=== PATIENT | male | born 1985 | race American Indian/Alaskan Native ===

== ENCOUNTER 2018-07-04 02:57 | Emergency (ER) | payer OTHER ==
[2018-07-04 04:01] LABS: Basophils % (Auto) 0.4 % (0.0-1.8); Eosinophils % (Auto) 0.1 % (0.0-4.3); Hematocrit 42.5 % (35.5-45.6); Hemoglobin 14.1 gm/dl (11.8-15.2); Lymphocytes # (Auto) 2.4 K/mm3 (1.2-5.4); Lymphocytes % (Auto) 44.6 % (13.4-35.0); Mean Corpuscular HGB Conc 33 % (32-34); Mean Corpuscular Volume 80 fl (84-94); Monocytes # (Auto) 0.6 K/mm3 (0.0-0.8); Monocytes % (Auto) 11.1 % (0.0-7.3); Platelet Count 309 K/mm3 (140-440); Red Blood Count 5.28 M/mm3 (3.65-5.03); Red Cell Distribution Width 14.5 % (13.2-15.2)
[2018-07-04 04:21] LABS: BUN/Creatinine Ratio 9; Blood Urea Nitrogen 11 mg/dL (9-20); Calcium 9.5 mg/dL (8.4-10.2); Hemolysis Index 12
--- NOTE | 2018-07-04 04:57 | Emergency Department Report ---
ED Psych HPI - General Chief Complaint: Psych Stated Complaint: MH EVAL Time Seen by Provider: 07/04/18 03:13 Source: patient Mode of arrival: Ambulatory - History of Present Illness Initial Comments: Patient is a 32-year-old [place] male who is presenting with suicidal ideation s. Patient states that the front of his called 911 after seeing him on Facebook live holding a gun and stating that this was the N. Patient states he has been very depressed since lost his partner who recently. Patient's been having some suicidal thoughts however he has never acted on them or expressed them to anyone. Patient states that he didn't directly say he was given a kilos of landa juliano was implied on his Facebook live. Patient does admit to myself and our mental health warehouse unloader that he was having suicidal thoughts. Patient was initially reluctant to come to the hospital and initially was barricaded himself in his home when paramedics and police arrived. Patient's was escorted here by police and crisis social workers that were called to the scene. - Related Data Previous Rx's Medication Instructions Recorded Last Taken Type Dicyclomine [Bentyl] 10 mg PO QID PRN #20 capsule 08/16/15 Unknown Rx Famotidine [Pepcid] 20 mg PO QDAY #30 tablet 08/16/15 Unknown Rx Ondansetron [Zofran Odt] 4 mg PO QID PRN #20 tab.rapdis 08/16/15 Unknown Rx Allergies Allergy/AdvReac Type Severity Reaction Status Date / Time No Known Allergies Allergy Verified 08/16/15 00:24 ED Review of Systems ROS: Stated complaint: MH EVAL Other details as noted in HPI Comment: All other systems reviewed and negative ED Past Medical Hx - Past Medical History Previous Medical History?: Yes Hx HIV: Yes (Recently diagnosed) - Surgical History Past Surgical History?: No - Social History Smoking Status: Current Some Day Smoker Substance Use Type: Marijuana, Other - Medications Home Medications: Home Medications Medication Instructions Recorded Confirmed Last Taken Type Dicyclomine [Bentyl] 10 mg PO QID PRN #20 capsule 08/16/15 Unknown Rx Famotidine [Pepcid] 20 mg PO QDAY #30 tablet 08/16/15 Unknown Rx Ondansetron [Zofran Odt] 4 mg PO QID PRN #20 tab.rapdis 08/16/15 Unknown Rx ED Physical Exam - General Limitations: No Limitations General appearance: alert, in no apparent distress - Head Head exam: Present: atraumatic, normocephalic - Eye Eye exam: Present: normal appearance - ENT ENT exam: Present: mucous membranes moist - Neck Neck exam: Present: normal inspection - Respiratory Respiratory exam: Present: normal lung sounds bilaterally. Absent: respiratory distress, wheezes, rales, rhonchi - Cardiovascular Cardiovascular Exam: Present: regular rate, normal rhythm. Absent: systolic murmur, diastolic murmur, rubs, gallop - GI/Abdominal GI/Abdominal exam: Present: soft, normal bowel sounds. Absent: distended, tenderness, guarding, rebound, rigid - Rectal Rectal exam: Present: deferred - Extremities Exam Extremities exam: Present: normal inspection - Back Exam Back exam: Present: normal inspection - Neurological Exam Neurological exam: Present: alert, oriented X3 - Psychiatric Psychiatric exam: Present: normal affect, normal mood - Skin Skin exam: Present: warm, dry, intact, normal color. Absent: rash ED Course Vital Signs 07/04/18 03:09 Temperature 99.1 F Pulse Rate 98 H Respiratory 18 Rate Blood Pressure 130/85 O2 Sat by Pulse 99 Oximetry ED Medical Decision Making - Lab Data Result diagrams: 07/04/18 03:38 07/04/18 03:38 Lab Results 07/04/18 07/04/18 07/04/18 Range/Units 03:38 03:38 03:38 WBC (4.5-11.0) K/mm3 RBC (3.65-5.03) M/mm3 Hgb (11.8-15.2) gm/dl Hct (35.5-45.6) % MCV (84-94) fl MCH (28-32) pg MCHC (32-34) % RDW (13.2-15.2) % Plt Count (140-440) K/mm3 Lymph % (Auto) (13.4-35.0) % [place] % (Auto) (0.0-7.3) % Eos % (Auto) (0.0-4.3) % Baso % (Auto) (0.0-1.8) % Lymph # (1.2-5.4) K/mm3 [place] # (0.0-0.8) K/mm3 Eos # (0.0-0.4) K/mm3 Baso # (0.0-0.1) K/mm3 Seg Neutrophils % (40.0-70.0) % Seg Neutrophils # (1.8-7.7) K/mm3 Sodium 140 (137-145) mmol/L Potassium 3.9 (3.6-5.0) mmol/L Chloride 103.3 (98-107) mmol/L Carbon Dioxide 23 (22-30) mmol/L Anion Gap 18 mmol/L BUN 11 (9-20) mg/dL Creatinine 1.2 (0.8-1.5) mg/dL Estimated GFR > 60 ml/min BUN/Creatinine Ratio 9 % Glucose 102 H (75-100) mg/dL Calcium 9.5 (8.4-10.2) mg/dL Salicylates < 0.3 L (2.8-20.0) mg/dL Acetaminophen < 5.0 L (10.0-30.0) ug/mL Plasma/Serum Alcohol (0-0.07) % 07/04/18 07/04/18 Range/Units 03:38 03:38 WBC 5.4 (4.5-11.0) K/mm3 RBC 5.28 H (3.65-5.03) M/mm3 Hgb 14.1 (11.8-15.2) gm/dl Hct 42.5 (35.5-45.6) % MCV 80 L (84-94) fl MCH 27 L (28-32) pg MCHC 33 (32-34) % RDW 14.5 (13.2-15.2) % Plt Count 309 (140-440) K/mm3 Lymph % (Auto) 44.6 H (13.4-35.0) % [place] % (Auto) 11.1 H (0.0-7.3) % Eos % (Auto) 0.1 (0.0-4.3) % Baso % (Auto) 0.4 (0.0-1.8) % Lymph # 2.4 (1.2-5.4) K/mm3 [place] # 0.6 (0.0-0.8) K/mm3 Eos # 0.0 (0.0-0.4) K/mm3 Baso # 0.0 (0.0-0.1) K/mm3 Seg Neutrophils % 43.8 (40.0-70.0) % Seg Neutrophils # 2.4 (1.8-7.7) K/mm3 Sodium (137-145) mmol/L Potassium (3.6-5.0) mmol/L Chloride (98-107) mmol/L Carbon Dioxide (22-30) mmol/L Anion Gap mmol/L BUN (9-20) mg/dL Creatinine (0.8-1.5) mg/dL Estimated GFR ml/min BUN/Creatinine Ratio % Glucose (75-100) mg/dL Calcium (8.4-10.2) mg/dL Salicylates (2.8-20.0) mg/dL Acetaminophen (10.0-30.0) ug/mL Plasma/Serum Alcohol < 0.01 (0-0.07) % - Medical Decision Making She is medically cleared at this time. It was suggested by mental health warehouse unloader that the patient be placed on 1013. Patient be evaluated for transfer to a [facility] facility Critical care attestation.: If time is entered above; I have spent that time in minutes in the direct care of this critically ill patient, excluding procedure time. ED Disposition Clinical Impression: Suicidal ideation, Encounter for psychiatric assessment Disposition: DC/TX-65 PSY HOSP/PSY UNIT Is pt being admited?: No Does the pt Need Aspirin: No Condition: Stable Time of Disposition: 04:57
[2018-07-04 12:14] LABS: Bacteria,Urine 1+ /HPF (Negative); Bilirubin,Urine NEG (Negative); Blood,Urine NEG (Negative); Color,Urine Amber (Yellow); Hyaline Casts,Urine 7 /LPF; Mucus,Urine 3+ /HPF
[2018-07-04 12:41] LABS: Benzodiazepines Screen,Urine PRESUMPTIVE NEGATIVE; Cannabinoid Screen,Urine PRESUMPTIVE NEGATIVE; Cocaine Screen,Urine PRESUMPTIVE NEGATIVE; Methadone Screen,Urine PRESUMPTIVE NEGATIVE; Opiate Screen,Urine PRESUMPTIVE NEGATIVE
--- NOTE | 2018-07-04 12:42 | Consultation ---
History of Present Illness - Reason for Consult Consult date: 07/04/18 Reason for consult: Initial Psychiatric Evaluation - History of Present Psychiatric Illness Patient is a 32-year-old male who presents to the emergency room with suicidal ideations. Patient states that he called 911 because he wants to see his sister/family. Per record patient was on Facebook Live holding a gun to his head stating he wants to end it all. Patient denies having gun held to head. Today the patient is cooperative but anxious during the assessment. He appears guarded and withdrawn. He verbalizes that his depression has worsen after the of his partner last month. He endorses depressed mood, lack of motivation, decrease energy, decrease appetite, and decrease sleep. Later, patient reports that his partner of pneumonia. Also, patient was diagnosed with HIV 2 weeks ago. He denies HI's, A/VH's, and delusions. Current Psychiatric Medications: Patient denies. Past Psychiatric History: No previous psychiatric diagnosis; no previous inpatient psychiatric hospitalizations; no outpatient psychiatrist; no previous suicide attempts. Past Psychiatric Medication Trials: Patient denies. History of Drug/Alcohol Abuse: Patient denies. UDS positive for amphetamines. History of Abuse/Trauma: Patient denies sexual, physical, and mental abuse. Social History: Master's Degree in Criminal Justice; no children; no pending legal issues; $3500 per month; limited support system. Family History of psychiatric illness and substance abuse: Brother- "schizophrenia and bipolar" Medications and Allergies Allergies Allergy/AdvReac Type Severity Reaction Status Date / Time No Known Allergies Allergy Verified 08/16/15 00:24 Home Medications Medication Instructions Recorded Confirmed Last Taken Type Dicyclomine [Bentyl] 10 mg PO QID PRN #20 capsule 08/16/15 Unknown Rx Famotidine [Pepcid] 20 mg PO QDAY #30 tablet 08/16/15 Unknown Rx Ondansetron [Zofran Odt] 4 mg PO QID PRN #20 tab.rapdis 08/16/15 Unknown Rx Mental Status Exam - Vital signs Last Vital Signs Temp 97.6 F 07/04/18 08:11 Pulse 99 H 07/04/18 08:11 Resp 18 07/04/18 12:05 BP 162/101 07/04/18 08:11 Pulse Ox 95 07/04/18 08:11 - Exam Narrative exam: Mental Status Exam Appearance: in hospital scrubs Behavior: poor eye contact Speech: regular rate and tone Mood: "sad " Affect: congruent to mood Thought Process: circumstantial Thought Content: Denies HI's, A/VH's, and delusions; + SI's with plan to shoot self Motor Activity: sitting in chair Cognition: A/O x 3 Insight: fair Judgment: poor Results Result Diagrams: 07/04/18 03:38 07/04/18 03:38 Abnormal lab results 07/04/18 07/04/18 07/04/18 Range/Units 03:38 03:38 03:38 RBC (3.65-5.03) M/mm3 MCV (84-94) fl MCH (28-32) pg Lymph % (Auto) (13.4-35.0) % [place] % (Auto) (0.0-7.3) % Glucose 102 H (75-100) mg/dL Ur Specific [place] (1.003-1.030) Salicylates < 0.3 L (2.8-20.0) mg/dL Acetaminophen < 5.0 L (10.0-30.0) ug/mL 07/04/18 07/04/18 Range/Units 03:38 11:59 RBC 5.28 H (3.65-5.03) M/mm3 MCV 80 L (84-94) fl MCH 27 L (28-32) pg Lymph % (Auto) 44.6 H (13.4-35.0) % [place] % (Auto) 11.1 H (0.0-7.3) % Glucose (75-100) mg/dL Ur Specific [place] 1.040 H (1.003-1.030) Salicylates (2.8-20.0) mg/dL Acetaminophen (10.0-30.0) ug/mL All other labs normal. Assessment and Plan Assessment and plan: Impression: NO PPHx. MDD, recurrent, severe w/o psychosis. Today the patient is a calm and cooperative during the assessment. He denies HI's, A/VH's, and delusions. UDS positive for amphetamines. Recommendation/Plan: 1. Continue 1013. Will reassess in 24 hours. 2. Start Zoloft 50mg po QAM depression/anxiety. Discussed possible increase suicidality/ medication induced siddhartha in reference to Zoloft. Patient verbalizes understanding. 3. Will attempt to gain collateral to determine proper disposition. Disposition: Will refer patient to inpatient psychiatric services. Will staff with Dr. Yvonne Conn.
[2018-07-04 13:17] LABS: Amphetamine Screen,Urine PRESUMPTIVE POSITIVE
[2018-07-05] MEDS: ZOLOFT PO SCH (11:15)
--- NOTE | 2018-07-05 18:14 | Progress Note ---
Subjective - Reason for Consult Consult date: 07/05/18 Reason for consult: follow up - Chief Complaint Chief complaint: He is angry and does not want to show the video or give his insurance information. Mental Status Exam - Vital signs Last Vital Signs Temp 97.5 F L 07/05/18 15:14 Pulse 94 H 07/05/18 15:14 Resp 16 07/05/18 15:14 BP 103/78 07/05/18 15:14 Pulse Ox 99 07/05/18 15:14 - Exam Orientation: time, place, person Affect: agitated Mood: congruent with affect Thought content: other (denies suicidal or homicidal ideation) Thought Process: Intact Perceptions: none Speech: normal rate and pattern Concentration: focused Motor activity: normal Level of consciousness: alert Memory: Intact Sleep Symptoms: Difficulty Falling Asleep Appetite: decreased Interaction: uncooperative Assessment and Plan Patient is a 32-year-old male who presents to the emergency room with suicidal ideations. Patient states that he called 911 because he wants to see his sister/family. Per record patient was on Facebook Live holding a gun to his head stating he wants to end it all. Patient denies having gun held to head. He says he had a phone and not a gun. He states the gun was in the holster. 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 Today the patient is evasive and angry when finding out the 1013 and transfer process. He appears to minimize the of his partner and says he is dealing with it. He endorses depressed mood, lack of motivation, decrease energy, decrease appetite, and decrease sleep. Later, patient reports that his partner of pneumonia. Also, patient was diagnosed with HIV 2 weeks ago. He denies HI's, A/VH's, and delusions. Impression: NO PPHx. MDD, recurrent, severe w/o psychosis. Today the patient is a calm and cooperative during the assessment. He denies HI's, A/VH's, and delusions. UDS positive for amphetamines. Recommendation/Plan: 1. Continue 1013. Will reassess in 24 hours. 2. Contineu Zoloft 50mg po QAM depression/anxiety. Discussed possible increase suicidality/ medication induced siddhartha in reference to Zoloft. Patient verbalizes understanding. 3. Will attempt to gain collateral to determine proper disposition. Disposition: Will refer patient to inpatient psychiatric services. Will staff with Dr. Yvonne Conn.
[2018-07-06] MEDS: ZOLOFT PO SCH (10:26)
[2018-07-07] MEDS: ZOLOFT PO SCH (10:53)
--- NOTE | 2018-07-07 12:28 | Progress Note ---
Subjective - Reason for Consult Consult date: 07/07/18 Reason for consult: Psychiatry Follow-up - Chief Complaint Chief complaint: "I didn't do anything" 32-year-old male who presents to the emergency room with suicidal ideations. Today the patient is somewhat evasive during the assessment. He was asked about the [employer] video, he denies holding a gun to his head. He is concerned about going to work. He stated that he didn't do anything wrong. He was asked about discussing the entire incident (specifics about the video) prior to his arrival to the ER, he stated, "I am good." He denies SI/HI's and AVH's. He denies any side effects of his medications. The patient is refusing Zoloft. Mental Status Exam - Vital signs Last Vital Signs Temp 97.8 F 07/07/18 08:36 Pulse 83 07/07/18 08:36 Resp 14 07/07/18 08:36 BP 104/78 07/07/18 08:36 Pulse Ox 98 07/07/18 08:36 - Exam Narrative exam: MSE: Appearance: calm Behavior: regular eye contact Speech: regular rate and tone Mood: evasive Affect: flat Thought Process: circumstantial Thought Content: denies SI/HI's and AVH's Motor Activity: sitting up in bed Cognition: A/O x 3 Insight: variable Judgment: variable Assessment and Plan Impression: MDD. Substance Use DO (amphetamines). Today the patient is a calm, but guarded during the assessment. DDx: R/O Bipolar DO, Substance Induced Mood DO Recommendation/Plan: Continue 1013 and gather collateral information. Continue Zoloft 50 mg PO daily for depression. Discussed possible suicidality/medication induced siddhartha with the patient reference Zoloft. Dispo: The patient was referred to inpatient psy services. Will staff with Dr. Yvonne Conn.
[2018-07-08] MEDS: ZOLOFT PO SCH (10:13)
--- NOTE | 2018-07-08 11:13 | Progress Note ---
Subjective - Reason for Consult Consult date: 07/08/18 Reason for consult: Psychiatry Follow-up - Chief Complaint Chief complaint: "I will stay of the meth" 32-year-old male who presents to the emergency room with suicidal ideations. Today the patient is calm and cooperative during the assessment. Per collateral information from the patient's sister Lex Smith at [phone], she stated that her brother never put a gun to his head on facebook live. She stated, "I watched the entire video." She stated that the patient was "high on meth" and was possibly "paranoid" prior to coming to the ER. She denies any previous crisis in the past by her brother. The patient acknowledged being somewhat depressed because of stressors, but is adamant that he didn't want to kill himself by using a gun. He stated that he is willing to take Zoloft, but would also like to be referred to see a therapist. He denies SI/HI's and AVH's. Mental Status Exam - Vital signs Last Vital Signs Temp 97.5 F L 07/08/18 04:00 Pulse 84 07/08/18 04:00 Resp 16 07/08/18 04:00 BP 119/65 07/08/18 04:00 Pulse Ox 100 07/08/18 04:00 - Exam Narrative exam: MSE: Appearance: calm, cooperative Behavior: regular eye contact Speech: regular rate and tone Mood: "good" Affect: congruent to mood Thought Process: linear Thought Content: denies SI/HI's and AVH's Motor Activity: sitting up in bed Cognition: A/O x 3 Insight: appropriate Judgment: appropriate Assessment and Plan Impression: MDD. Substance Use DO (amphetamines). Today the patient is a calm and cooperative during the assessment. The patient is no threat to self. DDx: R/O Bipolar DO, Substance Induced Mood DO Recommendation/Plan: Rescind 1013. Continue Zoloft 50 mg PO daily for depression. Discussed possible suicidality/medication induced siddhartha with the patient reference Zoloft. Discussed the importance to abstain from using recreational drugs with the patient. Dispo: The patient can follow up with [facility] for outpatient psy services. Will staff with Dr. Yvonne Conn.
--- NOTE | 2018-07-08 13:15 | Emergency Department Report ---
Blank Doc - Documentation Documentation: I was asked by the psychiatric team to provide discharge instructions for this patient. He was seen multiple times over the past few days. Originally he came in with some questionable suicidal ideations secondary to depression. The psychiatric team which includes the nurse practitioner Dean, working under the supervision of the psychiatrist Dr. Conn, have seen this patient and cleared him to be discharged home with outpatient follow-up and worsened the 1013. Their evaluation has brought them to the conclusion that the patient is not a danger to himself, danger to others, or having psychosis and he no longer meets the criteria for a 1013. They have also recommended for the patient to be continued on Zoloft and have talked to him regarding the metabolic and psychiatric side effects of this medication. Prior to discharge, I spoke with the patient myself as well as and the patient reiterates that he has no suicidal ideations and is interested in outpatient follow-up and says that he will be compliant. He has been instructed to return to the emergency department with any thoughts of harming himself, harming others, worsening of his symptoms, or if any acute distress.
[2018-07-08 14:16] VITALS: BP 119/76
== END 2018-07-08 14:15 | disposition home or self-care (01) ==
LOC: EEVIPCON 02:57 → ED 02:57
DX: F32.2 Major depressive disorder, single episode, severe without psychotic features (principal); F12.10 Cannabis abuse, uncomplicated; F17.200 Nicotine dependence, unspecified, uncomplicated; F15.10 Other stimulant abuse, uncomplicated
CPT/HCPCS: 36415; 80048; 80307; 81001; 85025; 99284; G0480; 80320

== ENCOUNTER 2018-07-24 22:16 | Emergency (ER) | payer OTHER ==
--- NOTE | 2018-07-24 23:58 | Emergency Department Report ---
ED Psych HPI - General Chief Complaint: Psych Stated Complaint: PSYCH EVALUATION Time Seen by Provider: 07/24/18 23:18 Source: patient, family, old records reviewed Mode of arrival: Ambulatory Limitations: Other (recent drug use) - History of Present Illness Initial Comments: Venkat is a very pleasant 32 yo male with hx of anxiety, depression and polysubs tance abuse who presents with abnormal behavior today. Her close friend giovanni was concerned that he would not answer his phone. He did admit to using methamphetamine today. He has used methamphetamine for the past 3-4 years. Heavy use of drugs since the of his intimate partner 2 months ago. His partner of AIDS complication. Venkat, himself, has recently discovered that he is HIV positive. Due to odd behavior, his sister would no longer allow him to stay in her home. He admits to depression and anxiety. Denies hallucinations. However, he does admit tthat he hears the voices of his mother and partner while under the influence of methamphetamines. Recently evaluated and held on 1013 involuntary held in our department for 4 days for suicidal ideation. At that time, he had access to a gun. Prescribed sertraline. Not taking this medication MD Complaint: altered mental status, other (abnormal behavior) -: Gradual, month(s) (2 months) Associated Psychiatric Symptoms: depression, racing thoughts Quality: constant Worsens With: drug use Context: recent drug abuse, not taking psychiatric - Related Data Previous Rx's Medication Instructions Recorded Last Taken Type Sertraline [Zoloft] 50 mg PO QAM #20 tablet 07/08/18 Unknown Rx Allergies Allergy/AdvReac Type Severity Reaction Status Date / Time No Known Allergies Allergy Verified 08/16/15 00:24 ED Review of Systems ROS: Stated complaint: PSYCH EVALUATION Other details as noted in HPI Comment: All other systems reviewed and negative Constitutional: denies: fever, malaise Respiratory: denies: cough Cardiovascular: denies: chest pain ED Past Medical Hx - Past Medical History Previous Medical History?: Yes Hx HIV: Yes (Recently diagnosed) - Surgical History Past Surgical History?: No - Social History Smoking Status: Never Smoker Substance Use Type: None - Medications Home Medications: Home Medications Medication Instructions Recorded Confirmed Last Taken Type Sertraline [Zoloft] 50 mg PO QAM #20 tablet 04/23/19 05/09/19 Unknown Rx ED Physical Exam - General Limitations: No Limitations General appearance: alert, in no apparent distress, appears intoxicated - Head Head exam: Present: atraumatic, normocephalic - Eye Eye exam: Present: normal appearance - ENT ENT exam: Present: mucous membranes moist - Neck Neck exam: Present: normal inspection, full ROM - Respiratory Respiratory exam: Present: normal lung sounds bilaterally. Absent: respiratory distress, wheezes, rales, rhonchi - Cardiovascular Cardiovascular Exam: Present: regular rate, normal rhythm, normal heart sounds. Absent: systolic murmur, diastolic murmur, rubs, gallop - GI/Abdominal GI/Abdominal exam: Present: soft, normal bowel sounds. Absent: distended, tenderness, guarding, rebound - Rectal Rectal exam: Present: deferred - Extremities Exam Extremities exam: Present: normal inspection - Back Exam Back exam: Present: normal inspection - Neurological Exam Neurological exam: Present: alert, oriented X3 - Psychiatric Psychiatric exam: Present: other (labile affect, inappropriately smiling, holding a large picture of his mother, poor insight, reports depression) - Skin Skin exam: Present: warm, dry, intact, normal color. Absent: rash ED Medical Decision Making - Lab Data Result diagrams: 07/24/18 23:52 Laboratory Results - last 24 hr 07/24/18 07/24/18 07/24/18 23:37 23:37 23:52 Sodium 137 Potassium 4.5 Chloride 97.6 L Carbon Dioxide 25 Anion Gap 19 BUN 14 Creatinine 1.3 Estimated GFR > 60 BUN/Creatinine Ratio 11 Glucose 95 Calcium 9.9 Urine Color Yellow Urine Turbidity Slightly-cloudy Urine pH 5.0 Ur Specific [place] 1.030 Urine Protein 30 mg/dl Urine Glucose (UA) Neg Urine Ketones Tr Urine Blood Neg Urine Nitrite Neg Urine Bilirubin Neg Urine Urobilinogen < 2.0 Ur Leukocyte Esterase Neg Urine WBC (Auto) 4.0 Urine RBC (Auto) 5.0 U Epithel Cells (Auto) < 1.0 Hyaline Casts 25 Urine Mucus 3+ Urine Opiates Screen Presumptive negative Urine Methadone Screen Presumptive negative Ur Barbiturates Screen Presumptive negative Ur Phencyclidine Scrn Presumptive negative U Benzodiazepines Scrn Presumptive negative Urine Cocaine Screen Presumptive negative U Marijuana (THC) Screen Presumptive negative - Medical Decision Making Venkat presents with acute depression and recent methamphetamine use. Recent suicidal gesture with gun during recent ED encounter. Due to poor insight, erratic behavior, hx of paranoia, I have placed Venkat on 1013 involuntary hold. He is high risk for self-harm. He is medically clear for psychiatric care. I reviewed labs obtained all within normal limits with the exception of UDS positive for amphetamines Critical care attestation.: If time is entered above; I have spent that time in minutes in the direct care of this critically ill patient, excluding procedure time. ED Disposition Clinical Impression: Acute depression, Polysubstance abuse, Grief Disposition: DC09 OP ADMIT IP TO THIS HOSP Is pt being admited?: No Does the pt Need Aspirin: No Condition: Stable
[2018-07-25 00:12] LABS: Benzodiazepines Screen,Urine PRESUMPTIVE NEGATIVE; Cannabinoid Screen,Urine PRESUMPTIVE NEGATIVE; Cocaine Screen,Urine PRESUMPTIVE NEGATIVE; Methadone Screen,Urine PRESUMPTIVE NEGATIVE; Opiate Screen,Urine PRESUMPTIVE NEGATIVE
[2018-07-25 00:28] LABS: BUN/Creatinine Ratio 11; Blood Urea Nitrogen 14 mg/dL (9-20); Calcium 9.9 mg/dL (8.4-10.2); Hemolysis Index 8
[2018-07-25 00:29] LABS: Bilirubin,Urine NEG (Negative); Blood,Urine NEG (Negative); Color,Urine Yellow (Yellow); Hyaline Casts,Urine 25 /LPF; Mucus,Urine 3+ /HPF; Urobilinogen,Urine < 2.0 mg/dL (<2.0)
[2018-07-25 00:39] LABS: Amphetamine Screen,Urine PRESUMPTIVE POSITIVE
[2018-07-25 00:55] LABS: Basophils % (Auto) 0.2 % (0.0-1.8); Eosinophils % (Auto) 0.1 % (0.0-4.3); Hematocrit 41.2 % (35.5-45.6); Hemoglobin 13.7 gm/dl (11.8-15.2); Lymphocytes # (Auto) 1.6 K/mm3 (1.2-5.4); Lymphocytes % (Auto) 21.7 % (13.4-35.0); Mean Corpuscular HGB Conc 33 % (32-34); Mean Corpuscular Volume 81 fl (84-94); Monocytes # (Auto) 0.5 K/mm3 (0.0-0.8); Monocytes % (Auto) 6.2 % (0.0-7.3); Platelet Count 322 K/mm3 (140-440); Red Cell Distribution Width 13.8 % (13.2-15.2)
[2018-07-25] MEDS ORDERED: HALDOL IM PRN (05:15)
[2018-07-25] MEDS ORDERED: ATIVAN IM PRN (05:15)
[2018-07-25] MEDS ORDERED: HALDOL ONE (05:16)
[2018-07-25] MEDS ORDERED: BENADRYL ONE (05:16)
[2018-07-25] MEDS ORDERED: ATIVAN ONE (05:17)
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
--- NOTE | 2018-07-25 10:35 | Consultation ---
History of Present Illness - Reason for Consult Consult date: 07/25/18 Reason for consult: Mental Health Evaluation Requesting physician: REJI ALBERTO - Chief Complaint Chief complaint: "The patient is sedated" - History of Present Psychiatric Illness 32 yo AA male who presented to the ER for bizarre behavior. This patient is known to me. Today the patient is sedated during the assessment. Per the notes, the patient attempted to elope. He was given PRN medications. Will attempt to reassess the patient in 24 hours. Medications and Allergies Allergies Allergy/AdvReac Type Severity Reaction Status Date / Time No Known Allergies Allergy Verified 08/16/15 00:24 Home Medications Medication Instructions Recorded Confirmed Last Taken Type Sertraline [Zoloft] 50 mg PO QAM #20 tablet 07/08/18 07/24/18 Unknown Rx Active Meds: Active Medications Haloperidol Lactate (Haldol) 5 mg IM Q6HR PRN PRN Reason: Agitation Last Admin: 07/25/18 05:37 Dose: 5 mg Documented by: Lorazepam (Ativan) 2 mg IM Q4HR PRN PRN Reason: Agitation Last Admin: 07/25/18 05:36 Dose: 2 mg Documented by: Sertraline HCl (Zoloft) 50 mg PO DAILY MJ Stop: 07/29/18 09:59 Past psychiatric history - Past Medical History Past Medical History: HIV/AIDS Past Surgical History: No surgical history - past Psychiatric treatment and history psychiatric treatment history: Hx of Substance Abuse. Unable to obtain a fam psy hx. - Social History Social history: Lives alone Mental Status Exam - Vital signs Last Vital Signs Temp 97.7 F 07/25/18 08:17 Pulse 78 07/25/18 08:17 Resp 16 07/25/18 08:17 BP 104/73 07/25/18 08:17 Pulse Ox 96 07/25/18 08:17 - Exam Narrative exam: Unable to complete the MSE because of the patient's condition. Results Result Diagrams: 07/24/18 23:52 07/24/18 23:52 Abnormal lab results 07/24/18 07/24/18 07/24/18 Range/Units 23:52 23:52 23:52 RBC (3.65-5.03) M/mm3 MCV (84-94) fl MCH (28-32) pg Seg Neutrophils % (40.0-70.0) % Chloride 97.6 L (98-107) mmol/L Salicylates < 0.3 L (2.8-20.0) mg/dL Acetaminophen < 5.0 L (10.0-30.0) ug/mL 07/24/18 Range/Units 23:52 RBC 5.10 H (3.65-5.03) M/mm3 MCV 81 L (84-94) fl MCH 27 L (28-32) pg Seg Neutrophils % 71.8 H (40.0-70.0) % Chloride (98-107) mmol/L Salicylates (2.8-20.0) mg/dL Acetaminophen (10.0-30.0) ug/mL All other labs normal. Assessment and Plan Assessment and plan: Impression: Hx of depression and Substance Abuse. Today the patient is sedated during the assessment. The patient is positive for amphetamines. Recommendation/Plan: Continue 1013 and reassess in 24 hours. Dispo: Once the patient is reassessed, proper dispo will be determined. Will staff with Dr. Yvnone Conn.
[2018-07-26] MEDS: ZOLOFT PO SCH ×2 (02:06→11:06)
--- NOTE | 2018-07-26 12:43 | Progress Note ---
Subjective - Reason for Consult Consult date: 07/26/18 Reason for consult: follow up - Chief Complaint Chief complaint: "I'm tired." 32 yo AA male who presented to the ER for bizarre behavior. This patient is known to me. He wants to sleep. Per the notes, the patient attempted to elope. He admits to recently using methamphetamine and says that is why he is tired now. He wants to continue zoloft. He declines to answer any additional questions. Mental Status Exam - Vital signs Last Vital Signs Temp 98.5 F 07/25/18 18:06 Pulse 102 H 07/25/18 18:06 Resp 20 07/25/18 18:06 BP 120/87 07/25/18 18:06 Pulse Ox 100 07/25/18 18:06 - Exam Orientation: time, place, person Affect: flat Mood: other (irritable) Thought content: other (unable to assess) Perceptions: other (unable to assess) Speech: normal rate and pattern Concentration: unable to pay attention Motor activity: normal Sleep Symptoms: Sleepiness Interaction: other (preferred to sleep) Assessment and Plan Impression: Hx of depression and Substance Abuse. The patient is positive for amphetamines and admits to using methamphetamine. He prefers to sleep today. Recommendation/Plan: Continue 1013 and reassess in 24 hours. continue zoloft 50mg qam Dispo: plan for inpatient psychiatric treatment Will staff with Dr. Yvonne Conn.
[2018-07-27] MEDS: ZOLOFT PO SCH (10:53)
--- NOTE | 2018-07-27 18:47 | Progress Note ---
Subjective - Reason for Consult Consult date: 07/27/18 Reason for consult: follow up - Chief Complaint Chief complaint: "I'm feeling better." 32 yo AA male who presented to the ER for bizarre behavior. Per the notes, the patient attempted to elope. He admits to recently using methamphetamine. He cannot pinpoint his trigger for using. He wants to stop using. He states he realizes how much support he has now. He is interested in outpatient treatment and does not want inpatient treatment. He states he can appreciate the concern for his back to back ER visits, but does not see a need for inpatient treatment since he is feeling better. He denies suicidal or homicidal ideation. Paranoia has resolved. Mental Status Exam - Vital signs Last Vital Signs Temp 97.8 F 07/27/18 14:30 Pulse 80 07/27/18 14:30 Resp 18 07/27/18 14:30 BP 123/76 07/27/18 14:30 Pulse Ox 99 07/27/18 14:30 Assessment and Plan Impression: Hx of depression and Substance Abuse. The patient is positive for amphetamines and admits to using methamphetamine. No SI/HI/AVH. No paranoia. Recommendation/Plan: Continue 1013 and reassess in 24 hours. continue zoloft 50mg qam Dispo: In 24 hours, if he no longer meets inpatient criteria, recommend PHP or intensive outpatient treatment Will staff with Dr. Yvonne Conn.
--- NOTE | 2018-07-28 10:29 | Progress Note ---
Subjective - Reason for Consult Consult date: 07/28/18 Reason for consult: Psychiatry Follow-up - Chief Complaint Chief complaint: "I'm doing well" 32 yo AA male who presented to the ER for bizarre behavior. This patient is known to me. Today the patient is calm and cooperative during the assessment. He stated that his priority is getting help for his substance abuse. He stated that he will work on his coping skills as well. He is willing to attend PHP with [facility] when discharged. He denies SI/HI's and AVH's. He denies any side effects of his medication. Mental Status Exam - Vital signs Last Vital Signs Temp 97.8 F 07/28/18 08:00 Pulse 89 07/28/18 08:00 Resp 24 07/28/18 08:00 BP 143/74 07/28/18 08:00 Pulse Ox 98 07/28/18 08:00 - Exam Narrative exam: MSE: Appearance: calm, cooperative Behavior: regular eye contact Speech: regular rate and tone Mood: "well" Affect: congruent to mood Thought Process: linear Thought Content: denies SI/HI's and AVH's Motor Activity: sitting up in bed Cognition: A/O x 3 Insight: appropriate Judgment: appropriate Assessment and Plan Impression: Unspecified Psychosis. Hx of Depression. Substance Use DO (amphetamines). Today the patient is a calm and cooperative during the assessmen t. The patient psychosis has resolved. DDx: Substance Induced Psychosis Recommendation/Plan: Rescind 1013. Continue Zoloft 50 mg PO daily for depression. Discussed possible suicidality/medication induced siddhartha with the patient reference Zoloft. Discussed the importance to abstain from using recreational drugs with the patient. Dispo: The patient will volunteer for Partial Hospitalization Program (PHP) with [facility]. when discharged. Will staff with Dr. Yvonne Conn.
[2018-07-28] MEDS: ZOLOFT PO SCH (12:39)
[2018-07-28 14:42] VITALS: BP 116/79
== END 2018-07-28 19:35 | disposition home or self-care (01) ==
LOC: EEVIPCON 22:16 → ED 22:16
DX: F29 Unspecified psychosis not due to a substance or known physiological condition (principal); F15.10 Other stimulant abuse, uncomplicated
CPT/HCPCS: 36415; 70450; 72125; 80048; 80307; 81001; 85025; 96372; 99284; G0480; J1200; J1630; J2060; 80320